=== PATIENT | female | born 1960 | race Caucasian/White ===

== ENCOUNTER 2018-02-08 20:24 | Emergency (ER) | payer OTHER ==
[~2018-02-08] VITALS: Ht 157.5 cm; Wt 88.5 kg
[2018-02-08] MEDS ORDERED: ACITRETIN10 MG (20:33)
[2018-02-08] MEDS ORDERED: LIPITOR 20 MG T20 M1 PO (20:33)
[2018-02-08] MEDS ORDERED: FAMCICLOVIR500 MG PO (20:34)
[2018-02-08] MEDS ORDERED: TOVIAZ8 MG PO (20:34)
[2018-02-08] MEDS ORDERED: ZANTAC 150MG T150 MG PO (20:35)
[2018-02-08] MEDS ORDERED: OMEPRAZOLE40 MG PO (20:35)
[2018-02-08 22:10] VITALS: BP 160/98
== END 2018-02-08 22:10 | disposition home or self-care (01) ==
LOC: ER 20:24
DX: R04.0 Epistaxis (principal); Z88.1 Allergy status to other antibiotic agents; Z91.011 Allergy to milk products

== ENCOUNTER 2018-02-10 11:11 | Emergency (ER) | payer OTHER ==
[~2018-02-10] VITALS: Ht 157.5 cm; Wt 88.5 kg
[~2018-02-10 11:11] MED LIST: ACITRETIN10 MG; FAMCICLOVIR500 MG PO; LIPITOR 20 MG T20 M1 PO; OMEPRAZOLE40 MG PO; TOVIAZ8 MG PO; ZANTAC 150MG T150 MG PO
[2018-02-10] MEDS ORDERED: UNICOMPLEX M TA1 TA1 PO (11:26)
[2018-02-10] MEDS ORDERED: CRANBERRY-PROB1 EACH PO (11:26)
[2018-02-10] MEDS ORDERED: PROBIOTIC1 EAC1 PO (11:26)
[2018-02-10 12:45] VITALS: BP 130/75
== END 2018-02-10 12:46 | disposition home or self-care (01) ==
LOC: ER 11:11
DX: R04.0 Epistaxis (principal); Z88.8 Allergy status to other drugs, medicaments and biological substances; Z88.1 Allergy status to other antibiotic agents